=== PATIENT | male | born 1980 | race Caucasian/White ===

== ENCOUNTER → 2020-08-04 08:09 | Outpatient (BNVA) | payer SELFPAY | DX: Z76.89 Persons encountering health services in other specified circumstances (principal) ==

== ENCOUNTER 2022-04-30 15:45 | Emergency (ER) | payer OTHER, SELFPAY ==
[2022-04-30 17:03] VITALS: BP 134/91; PULSE 53; RESP 16; TEMP 36.3; O2SAT 100; BMI 23.1
[2022-04-30] MEDS: Fluorescein Sodium STRIP 1 STRIP EYE-LEFT (19:11)
[2022-04-30] MEDS: Tetracaine HCl/PF 0.5% Oph Sol 4 ML DROPS 3 DROP EYE-LEFT (19:11)
--- NOTE | 2022-04-30 20:19 | ED_ITS ---
HPI - Eye Problem General Chief complaint: Eye Problems Stated complaint: Eye inj Time Seen by Provider: 04/30/22 19:07 Source: patient Mode of arrival: ambulatory Limitations: no limitations History of Present Illness HPI Narrative: Patient presents emergency department for evaluation of left eye pain. 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 Initially was having pain, then experience blurred vision he attempted to rinses I have but pain persisted. Currently with no acute vision changes. Related Data Previous Rx's Medication Instructions Recorded ciprofloxacin HCl 0.3 % eye drops 2 drp ophthalmic-Left Q6H 5 days 04/30/22 #2.5 mL Allergies Allergy/AdvReac Type Severity Reaction Status Date / Time amoxicillin Allergy Unknown Verified 04/30/22 17:09 Penicillins Allergy Unknown Verified 04/30/22 17:09 Review of Systems Review of Systems: Eye: Positive eye pain. Yes all other systems are reviewed and are negative PMFSH Past Medical History Attestation statement: The following information was validated with the patient. Source: old records reviewed Social History Social History Advance Directives: No Advance Directives Information Provided: No Physical Exam Vital Signs: Vital Signs: Last Vital Signs Temp 97.3 F 04/30/22 17:03 Pulse 53 04/30/22 17:03 Resp 16 04/30/22 17:03 BP 134/91 H 04/30/22 17:03 Pulse Ox 100 04/30/22 17:03 O2 Del Method 04/30/22 17:03 BMI result Body Mass Index 23.1 Appearance: Alert.?Oriented to person, place and time. No acute distress.?Normal affect. Eyes: Pupils equal, round and reactive to light.? EOMI. No nystagmus. Sclera white. Conjunctiva pink. Fluorescein uptake to left eye at 6:00 o'clock over the iris. ENT: Pharynx normal.?? Neck: Normal inspection.? Neck supple.?? CVS: Heart sounds normal. Normal heart rate and rhythm.? Pulses normal.?? Respiratory: No respiratory distress.? Lung sounds clear to auscultation bilaterally?? Abdomen: Soft and non-tender. Skin: Skin warm and dry.? Normal skin color.? Extremities: No lower extremity edema. Neuro: Moves all extremities spontaneously. Sensation intact bilaterally. no Motor deficits Ambulates with normal steady gait. Course Course Course Narrative: Patient is a 41-year-old male being evaluated for traumatic left eye pain. Fluorescein uptake consistent with a corneal abrasion. Discussed avoidance of rubbing, scratching the eye, cool compresses, outpatient follow-up with Ophthalmology, worrisome signs and symptoms to return back to the emergency department for, antibiotic eyedrops to be taken as prescribed. Patient verbalized understanding, patient discharged in stable condition, ambulatory added the emergency department with steady gait. MDM - Eye Problem Medical Records Attestation: I reviewed the patient's medical records. Discharge Plan Discharge Clinical Impression: Corneal abrasion Patient Disposition: Home, Self-Care Instructions: Corneal Abrasion (ED) Additional Instructions: You have been given a prescription for antibiotic drops, please complete this entire course. Avoid rubbing, itching, scratching the eye. 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 If you develop worsening pain, vision impairment, redness swelling or drainage the tissue surrounding the eye you should be re-evaluated. Return to emergency department any new or worsening symptoms or concerns Prescriptions: New ciprofloxacin HCl 0.3 % drops 2 drp ophthalmic-Left Q6H 5 Days Qty: 2.5 0RF Rx Instructions: 2 drps into the left eye; Referrals: Clark Farooq [Physician] - 3 days Stand Alone Forms: Work/School Release Interventions: ED Discharge Assessment Last Done: 04/30/22 20:38 Discharge Date/Time: 04/30/22 20:41
== END 2022-04-30 20:41 | disposition home or self-care (01) ==
PROVIDERS: Emergency Provider Emergency Medicine; PCP Nurse Practitioner Family
DX: H57.12 Ocular pain, left eye (principal); S05.02XA Injury of conjunctiva and corneal abrasion without foreign body, left eye, initial encounter; W22.8XXA Striking against or struck by other objects, initial encounter; Y93.89 Activity, other specified; Y92.018 Other place in single-family (private) house as the place of occurrence of the external cause; Y99.0 Civilian activity done for income or pay
CPT/HCPCS: 99282; 99283